=== PATIENT | male | born 1995 | race Caucasian/White ===

== ENCOUNTER 2017-05-02 08:18 | Observation (INO) | payer OTHER ==
[2017-05-02 08:19] VITALS: BMI 25.2
[2017-05-02 08:26] VITALS: RESP 18
--- NOTE | 2017-05-02 08:50 | ED PDOC ---
Arrival/HPI - General Chief Complaint: Alcohol Ingestion Time Seen by Provider: 05/02/17 08:31 Historian: Patient, EMS - History of Present Illness Narrative History of Present Illness (Text): 05/02/17 08:47 Patient is a 21 yo male brought to ED by [facility] for "intoxication". Reportedly the patient was "banging on people's doors and drunk" prior to arrival. He admitted to "drinking some beers". No history of intentional overdose or suicidal ideation. No trauma reported. Denies chest pain or shortness of breath. Time/Duration: Prior to Arrival Past Medical History - Past History Past History: No Previous - Infectious Disease Hx of Infectious Diseases: None - Psychiatric Hx Substance Use: No - Anesthesia Hx Anesthesia: No Hx Anesthesia Reactions: No Hx Malignant Hyperthermia: No Family/Social History Family/Social History: No Known Family HX Smoking Status: Unknown If Ever Smoked Hx Alcohol Use: Yes Frequency of alcohol use: Daily Hx Substance Use: No Allergies/Home Meds Allergies/Adverse Reactions: Allergies No Known Allergies Allergy (Verified 05/02/17 08:26) Home Medications: Home Meds Medication Instructions Recorded Confirmed Unobtainable 05/02/17 05/02/17 Review of Systems - Review of Systems Systems not reviewed;Unavailable: Intoxicated Constitutional: absent: Fevers Respiratory: absent: SOB Cardiovascular: absent: Chest Pain Gastrointestinal: absent: Abdominal Pain, Nausea, Vomiting, Hematochezia, Hematemesis Neurological: absent: Headache, Dizziness Psychiatric: absent: Suicidal Ideation Physical Exam Vital Signs Reviewed: Yes Vital Signs Temp Pulse Resp BP Pulse Ox 05/02/17 08:19 98.3 F 68 18 118/65 98 Temperature: Afebrile Appearance: Positive for: Non-Toxic Pain Distress: None Mental Status: Positive for: Lethargic Finger Stick Blood Glucose: 98 - Systems Exam Head: Present: Atraumatic Pupils: Present: PERRL Extroacular Muscles: Present: EOMI Mouth: Present: Moist Mucous Membranes Pharnyx: No: ERYTHEMA Nose (External): Present: Atraumatic Neck: Present: Normal Range of Motion. No: Meningeal Signs Respiratory/Chest: Present: Clear to Auscultation. No: Respiratory Distress Cardiovascular: Present: Regular Rate and Rhythm Abdomen: No: Tenderness Upper Extremity: Present: Normal Inspection, NORMAL PULSES Lower Extremity: Present: Normal Inspection, NORMAL PULSES Neurological: Present: Other (sleepy but arousable with verbal stimuli, slurred speech, moves all four extremities) Skin: Present: Warm Psychiatric: Present: Alert, Intoxicated. No: Suicidal Ideation Medical Decision Making ED Course and Treatment: 05/02/17 08:50 History reviewed with ambulance personnel. Patient with no respiratory distress. CV stable. No trauma noted. He admits to drinking. Patient will be monitored with serial neurological exams until clinically sober. 05/02/17 11:52 Re-examined, patient sleeping, easily arousable. No respiratory distress. Will continue serial exams. ED OBSERVATION Discharge: Yes Date of observation admission: 05/02/17 Time of observation admission: 08:30 - Observation admission statement Patient is being placed in observation because:: Intoxication, requiring serial exams. - Goals of Observation Goals of observation are:: Monitoring for appopriate improvement in sobriety with stated alcohol ingestion. Serial exams. - Progress Note Progress Note: 05/02/17 12:11 Sleeping. Easily arousable. No respiratory distress. 05/02/17 14:24 Patient awake. Smiling, interactive. States he "drank too much". Denies injury. Denies pain or discomfort. Denies suicidal ideation or drug abuse. Ate a meal. Ambulated without difficulty. Steady gait. Patient is currently neurogically intact, no tremors or instability. Risks of excessive alcohol use reviewed with patient. Disposition/Present on Arrival - Present on Arrival Any Indicators Present on Arrival: No History of DVT/PE: No History of Uncontrolled Diabetes: No Urinary Catheter: No History of Decub. Ulcer: No History Surgical Site Infection Following: None - Disposition Have Diagnosis and Disposition been Completed?: Yes Diagnosis: Alcohol intoxication Disposition: HOME/ ROUTINE Disposition Time: 14:25 Patient Plan: Discharge Patient Problems: Current Active Problems Problem Status Onset Alcohol intoxication Acute Condition: GOOD
[2017-05-02 14:47] VITALS: TEMP 98.6
[2017-05-02 14:48] VITALS: BP 110/78; PULSE 71; O2SAT 99
== END 2017-05-02 14:29 | disposition home or self-care (01) ==
LOC: ED 08:18 → ERH 12:17 → EROBSV 12:18
PROVIDERS: ADMIT Emergency Medicine; ATTEND Emergency Medicine
DX: F10.129 Alcohol abuse with intoxication, unspecified (principal)
CPT/HCPCS: 99283; G0378